=== PATIENT | male | born 1985 | race Caucasian/White ===

== ENCOUNTER 2025-01-08 22:42 | Emergency (ER) | payer OTHER, SELFPAY ==
[2025-01-08 22:44] VITALS: BP 123/88
[2025-01-08 23:34] LABS: Troponin I < 0.012 ng/ml
[2025-01-08 23:47] LABS: ALT (SGPT) 40 U/L (0-50); AST (SGOT) 28 U/L (17-59); Alkaline Phosphatase 74 U/L (38-126); Blood Urea Nitrogen 20 mg/dl (9-20); Calcium 10.3 mg/dl (8.4-10.2); Carbon Dioxide 23 mmol/L (22-30); Chloride 105 mmol/L (98-107); Glucose 100 mg/dl (70-99); Potassium 4.6 mmol/L (3.5-5.1); Sodium 140 mmol/L (135-145); Total Bilirubin 1.1 mg/dl (0.2-1.3); Total Protein 8.5 g/dl (6.3-8.2); eGFR > 60.00
[2025-01-09 03:18] VITALS: BP 122/80
[2025-01-09 03:55] VITALS: BP 125/87
[2025-01-09 04:00] VITALS: BP 118/85
[2025-01-09 04:09] LABS: % Basophils 0.3 % (0-2); % Eosinophils 0.7 % (0-6); % Immature Granulocytes 0.3 % (0-0.5); % Lymphocytes 29.9 % (20.5-51.1); % Monocytes 5.9 % (1.7-9.3); % Neutrophils 62.9 % (42.2-75.2); Absolute Eosinophils 0.1 10^3/uL (0-0.7); Absolute Lymphocytes 3.5 10^3/uL (1.2-3.4); Absolute Monocytes 0.7 10^3/uL (0.1-0.6); Absolute Neutrophils 7.3 10^3/uL (1.4-6.5); Hematocrit 47.3 % (39.0-52.0); Hemoglobin 15.2 g/dL (13.0-18.0); Mean Corp Hgb Conc. 32.1 g/dL (33.0-37.0); Mean Corpuscular Hgb 28.5 pg (27.0-31.0); Mean Corpuscular Volume 88.7 fL (80.0-94.0); Mean Platelet Volume 9.4 fL (7.4-10.4); Nucleated Red Blood Cells % 0 % (-); Platelet Count 344 10^3/uL (130-400); Red Blood Cell Count 5.33 10^6/uL (4.70-6.10); Red Cell Dist. Width 14.2 % (11.5-14.5); White Blood Cell Count 11.6 10^3/uL (4.8-10.8)
--- NOTE | 2025-01-09 04:32 | ED.GENMED ---
History of Present Illness
General
Chief Complaint: Back Pain
Source: patient and spouse
Exam Limitations: none
Time Seen by Provider: 01/09/25 04:09
Nursing documentation reviewed up to this point in time: agreed with
History of Present Illness
History of Present Illness:
39-year-old male with a past medical history of SVT status post ablation who presents to the emergency department for evaluation of right scapular pain. Patient reports symptoms started yesterday and have been constant and intense since then. He
reports a sharp pain right medial scapula that radiates towards the posterior the right shoulder, right neck and right side of the chest. It is worse with any type of movement and with palpation. No relieving factors noted�patient has tried
Tylenol, muscle relaxers, meloxicam without relief. He denies any associated weakness or numbness in the right arm. He denies any associated shortness of breath. No recent cough, fevers, chills. No swelling or pain in the legs. No abdominal
pain, nausea, vomiting. He says that he has had more mild symptoms in this area with working on the past but never this intense; did not have any specific trauma or injury.
Past History
Past History
ED Past Medical History: Other
ED Past Surgical History: Orthopedic
Social History
Tobacco: Non-smoker
Personal:
Living: with family
Review of Systems
Review of Systems
All Other Systems: ROS reviewed and negative except as documented in HPI and ROS
Constitutional: Denies fever or chills
Respiratory: Denies cough or trouble breathing
Cardiac: Reports chest pain; Denies palpitations
ABD/GI: Denies abdominal pain, nausea or vomiting
: Denies flank pain
Musculoskeletal: Reports joint pain (Shoulder pain) and back pain; Denies neck pain
Neurological: Denies dizzy, headache, weakness or numbness
Phy Exam
Physical Exam
Physical Exam:
General: Awake, alert, oriented x3; appears uncomfortable
Head: Normocephalic, atraumatic
Eyes: Conjunctiva normal
Throat: Airway intact, handling secretions
Neck: Trachea midline, supple without meningismus
Lungs: Clear to auscultation bilaterally, no wheezing, rales, rhonchi
Heart: Regular rate and rhythm, no murmurs, gallops, or rubs
Abd: Soft, non distended, nontender
Back: Patient has tenderness upper thoracic left roughly T2-T3 right paraspinal region but no midline tenderness and no midline lumbar tenderness; he has tenderness along the medial margin of the right scapula
Skin: no rash in area of concern
Extremities: No edema in extremities, equal pulses in all extremities�specifically a strong right radial pulse; motor and sensory intact distal right upper extremity; he does have tenderness posterior inferior aspect of the shoulder but no
tenderness along the clavicle or anterior shoulder or along the deltoid
Scores
Heart Failure Risk
Heart Failure Risk Score: Not Applicable
Heart Score for Chest Pain Patients
STEMI patient?: Not applicable
Withdrawal Assessment of Alcohol
Withdrawal Assessment Completed?: Not applicable
Course
Orders/Labs/Results
Orders:
Orders
01/08/25 22:47
Electrocardiogram (*1) Urgent
Reason for Study: Chest Pain
Cardiac Monitoring- Treatment ONCE
EKG- Treatment ONCE
IV Insert/Care/Rem.- Treatment PRN
Complete Blood Count/With Diff Urgent
O2 Therapy [RESP] Urgent
Titrate/Wean O2 to maintain O2 sat greater than (%): 90
Special Instructions: Maintain sats >/=90%
Pulse Ox/spot Check [RESP] Urgent
Quantity: 1
Special Instructions: ON ROOM AIR
01/08/25 22:59
Comprehensive Metabolic Panel Urgent
Troponin I Urgent
01/09/25 04:12
CT Chest PE Study Urgent
Comment:
Reason For Exam: right chest pain, scapular pain
01/09/25 04:32
Ketorolac [Toradol] 15 mg IV NOW STA
Morphine Sulfate 4 mg IV NOW STA
01/09/25 04:38
Troponin I Urgent
01/09/25 04:41
Ondansetron Injectable [Zofran] 4 mg .ROUTE .STK-MED ONE
01/09/25 04:43
Ondansetron Injectable [Zofran] 4 mg IV NOW STA
01/09/25 05:42
HYDROmorphone [Dilaudid] 0.5 mg .ROUTE .STK-MED ONE
HYDROmorphone [Dilaudid] 0.5 mg IV NOW STA
Abnormal Lab Results
01/08/25 01/08/25
22:47 22:59
WBC 11.6 H 10^3/uL
(4.8-10.8)
MCHC 32.1 L g/dL
(33.0-37.0)
Absolute Neuts (auto) 7.3 H 10^3/uL
(1.4-6.5)
Absolute Lymphs (auto) 3.5 H 10^3/uL
(1.2-3.4)
Absolute Monos (auto) 0.7 H 10^3/uL
(0.1-0.6)
Glucose 100 H mg/dl
(70-99)
Calcium 10.3 H mg/dl
(8.4-10.2)
Total Protein 8.5 H g/dl
(6.3-8.2)
01/08/25 22:47
01/08/25 22:59
Vital Signs
Initial and Last Documented VS:
Initial Vital Signs
Temp Pulse Resp BP Pulse Ox
36.9 C 84 19 123/88 99
01/08/25 22:44 01/08/25 22:44 01/08/25 22:44 01/08/25 22:44 01/08/25 22:44
Last Documented Vital Signs
Temp Pulse Resp BP Pulse Ox
37.1 C 71 13 109/70 94
01/09/25 03:18 01/09/25 05:00 01/09/25 05:00 01/09/25 05:00 01/09/25 05:00
MDM/Problems Addressed
Differential Diagnosis Includes:
Pinched nerve/radiculopathy, muscular strain, pneumothorax, costochondritis, PE, ACS considered much less likely, aortic dissection considered very unlikely clinically
MDM/Problems Addressed:
39-year-old male presents for evaluation of right scapular pain radiating towards the right neck, shoulder, chest constant since yesterday. Denies specific trauma or injury but he has had pains in this area with working out in the past. Vitals and
exam as above. He had labs sent in triage including a CBC and a CMP which showed no clinically significant abnormalities. Troponin is pending. EKG shows sinus rhythm no STEMI. Will check CTA of chest to rule out PE. Treat pain. Reassess after
the above.
Reviewed remaining labs�troponin is undetectable. CT of the chest shows no PE, no dissection, no other acute pathology to account for symptoms. My suspicion is that this is likely a pinched nerve. Will plan to discharge with pain control,
follow-up with orthopedist as an outpatient. Patient comfortable with this plan. All questions answered.
*Radiology
Radiology exam reviewed: radiology read reviewed
*Pulse Oximetry
Patient hypoxic: no
*EKG
Interpreted by ED Provider?: Yes
Heart Rate: 77
Rate: normal
Rhythm: sinus
[place]: normal axis
Interval: normal interval
QRS Pattern: normal QRS
Ischemia: no ischemia
*Critical Care Note
Total Time (30-74mins, 75-104mins- exclusive of procedures): Not Applicable
Data Reviewed
Source: patient and spouse
ED Attending Note
-
Portions of this chart may have been created with voice recognition software.� Occasional wrong word or��sound alike� substitutions may have occurred due to the inherent limitations of voice recognition software.
Discharge Plan
Departure
Patient Disposition: Home (Routine Discharge)
Date of Disposition: 01/09/25
Time of Disposition: 06:02
Patient with high blood pressure during this ER visit?: No
Discharge Problem:
Pain of right scapula
Instructions: Radiculopathy (DC)
Prescriptions:
New
gabapentin 100 mg capsule
100 mg PO TID Qty: 30 0RF
oxycodone 5 mg capsule
5 mg PO TID PRN (Reason: Pain) Qty: 14 0RF
methylprednisolone [Medrol (Taoc)] 4 mg tablets,dose pack
See Rx Instructions .ROUTE .COMPLEX Qty: 21 0RF
Rx Instructions:
orally per package directions
No Action
metoprolol succinate 50 MG tablet extended release 24 hr
25 mg PO BID
flecainide 100 MG tablet
50 mg PO Q12H
bupropion HCl 300 MG tablet extended release 24 hr
300 mg PO QPM
doxycycline hyclate 100 MG tablet
100 mg PO BID Qty: 13 0RF
Referrals:
Haroldo Hankins MD [Family Provider] -
Scotty Larios MD [Active] - Call in 1-3 days for appt (Orthopedist)
Activity Restrictions/Additional Instructions:
Thank you for visiting the Emergency Department at [facility].
1. Please schedule a follow up appointment as directed. Call first thing tomorrow morning to make an appointment.
2. If indicated, please take your medications as instructed and indicated on discharge paperwork.
3. If any of your symptoms do not improve, or persist, or become more severe within 6-12 hours, please return to the emergency department for further care.
4. Please return to the emergency department if you develop a headache, neck pain/stiffness, fever greater than 100.4F, chest pain, shortness of breath, persistent nausea, vomiting, slurred speech, difficulty walking, numbness/tingling, weakness,
signs of infection or any other symptoms that are worrisome to you.
Please call [phone] if you have any questions.
Interventions
Interventions:
*Risk Screen - Suicide Last Done: 01/08/25 22:44
*General Assessment Last Done: 01/09/25 04:29
*Neglect/Abuse Screening Last Done: 01/08/25 22:44
ED- Fall Risk Assessment Last Done: 01/09/25 04:30
ED-Musculoskeletal Assessment Last Done: 01/09/25 04:28
Discharge Date and Time
Print Language: EMIRATI
[2025-01-09] MEDS: TORADOL 15 MG IV (04:37)
[2025-01-09] MEDS: MORPHINE SULFATE 4 MG IV (04:37)
[2025-01-09] MEDS: ZOFRAN 4 MG IV (04:44)
[2025-01-09 05:00] VITALS: BP 109/70
[2025-01-09 05:10] LABS: Troponin I < 0.012 ng/ml
[2025-01-09] MEDS: DILAUDID 0.5 MG IV (05:42)
== END 2025-01-09 06:17 | disposition home or self-care (01) ==
LOC: EMR 22:42
PROVIDERS: EMERGENCY PHYSICIAN Emergency Medicine; FAMILY PHYSICIAN Family Medicine
DX: M25.511 Pain in right shoulder (principal)
CPT/HCPCS: 99285; 96374; 96375 ×3; 71275; 80053; 84484; 85025; 93005; Q9967

== ENCOUNTER 2025-01-29 16:52 | Emergency (ER) | payer OTHER, SELFPAY ==
[2025-01-29 17:16] VITALS: BP 140/93
[2025-01-29 20:50] VITALS: BMI 30.1
[2025-01-29 21:26] VITALS: BP 142/84
--- NOTE | 2025-01-29 21:27 | ED.GENMED ---
History of Present Illness
General
Chief Complaint: Back Pain
Source: patient, records and previous radiology exam
Exam Limitations: none
Time Seen by Provider: 01/29/25 21:08
Nursing documentation reviewed up to this point in time: agreed with
History of Present Illness
History of Present Illness:
39-year-old male presents with right posterior back pain around scapula acute on chronic issue seen in the ER ER few weeks ago had a CAT scan some blood work, treated with some pain meds discharged to follow-up with physical therapy scheduled to see
them next week patient states he felt better now pain returned, same pain he has had previously states he goes back years actually he got it after working out, told it could be a pinched nerve, he has no arm or leg weakness no fever no cough pain is
worse with movement, better with rest, currently on no meds for it, no rash
Past History
Past History
ED Past Medical History: Other
ED Past Surgical History: Orthopedic
Social History
Tobacco: Non-smoker
Alcohol: None
Drug: None
Personal:
Living: with family
Employment: Employed
Review of Systems
Review of Systems
All Other Systems: Not applicable
Constitutional: Denies fever
Respiratory: Reports no symptoms; Denies trouble breathing
Cardiac: Reports no symptoms; Denies chest pain
ABD/GI: Reports no symptoms; Denies abdominal pain
Musculoskeletal: Reports back pain
Neurological: Reports no symptoms
Endocrine: Reports no symptoms
Hematologic/Lymphatic: Reports no symptoms
Phy Exam
Physical Exam
Physical Exam:
Physical Exam
General: 39-year-old male looks uncomfortable due to pain but nontoxic
Neck: No jaundice, midline trachea no midline neck pain
Back: +point tender of the right scapula no cr�pe
Heart: s1/s2 regular rate and rhythm, no murmur. equal radial pulses.
Lungs: no acute respiratory distress. clear bilaterally
Abdomen: Nontender
Neuro: alert and oriented. no focal neurological deficits drawn equal motor vehicle parts interpreter strength, strong radial pulses bilaterally
Skin: no rash
Psychiatric: well kept. interactive and cooperative
Extremities: no edema.
Course
Orders/Labs/Results
Orders:
Orders
01/29/25 21:18
Diazepam [Valium] 5 mg PO NOW STA
Ketorolac [Toradol] 60 mg IM NOW STA
Oxycodone/Acetaminophen [Percocet 5/325] 1 tablet PO NOW STA
Vital Signs
Initial and Last Documented VS:
Initial Vital Signs
Temp Pulse Resp BP Pulse Ox
98.5 F 95 20 140/93 99
01/29/25 17:16 01/29/25 17:16 01/29/25 17:16 01/29/25 17:16 01/29/25 17:16
Last Documented Vital Signs
Temp Pulse Resp BP Pulse Ox
98.5 F 76 18 142/84 99
01/29/25 17:16 01/29/25 21:26 01/29/25 21:26 01/29/25 21:26 01/29/25 21:26
MDM/Problems Addressed
Differential Diagnosis Includes:
Radiculopathy, muscle strain, conceivably mass, negative workup recently including CT of the chest
MDM/Problems Addressed:
Back pain
*Radiology
Radiology exam reviewed: radiology read reviewed
*Pulse Oximetry
Patient hypoxic: no
*Critical Care Note
Total Time (30-74mins, 75-104mins- exclusive of procedures): Not Applicable
Update Note
Update Note:
Update prior to notes reviewed, from his prior visit CT report reviewed, will try to get him comfortable here physical therapy is already been arranged by the patient, I believe he would benefit from a pain management/metal spray operator as well try to get
him some numbers for follow-up
10:30 PM update patient looks improved, he request refill for his prior meds, encouraged him to follow-up with physical therapist also with the metal spray operator number given to the patient on his discharge papers
ED Attending Note
-
Portions of this chart may have been created with voice recognition software.� Occasional wrong word or��sound alike� substitutions may have occurred due to the inherent limitations of voice recognition software.
Discharge Plan
Departure
Patient Disposition: Home (Routine Discharge)
Date of Disposition: 01/29/25
Time of Disposition: 22:24
Patient with high blood pressure during this ER visit?: No
Condition: Good
Covid-19: Not Applicable
Discharge Problem:
Back pain
Instructions: Upper Back Pain (DC), Radiculopathy (DC)
Prescriptions:
New
gabapentin 100 mg capsule
100 mg PO TID Qty: 30 0RF
methylprednisolone [Medrol ([place])] 4 mg tablets,dose pack
See Rx Instructions .ROUTE .COMPLEX Qty: 21 0RF
Rx Instructions:
for 6 days
oxycodone 5 mg tablet
5 mg PO Q8H PRN (Reason: Pain) Qty: 10 0RF
No Action
metoprolol succinate 50 MG tablet extended release 24 hr
25 mg PO BID
flecainide 100 MG tablet
50 mg PO Q12H
bupropion HCl 300 MG tablet extended release 24 hr
300 mg PO QPM
doxycycline hyclate 100 MG tablet
100 mg PO BID Qty: 13 0RF
gabapentin 100 mg capsule
100 mg PO TID Qty: 30 0RF
oxycodone 5 mg capsule
5 mg PO TID PRN (Reason: Pain) Qty: 14 0RF
methylprednisolone [Medrol ([place]aco)] 4 mg tablets,dose pack
See Rx Instructions .ROUTE .COMPLEX Qty: 21 0RF
Rx Instructions:
orally per package directions
Referrals:
Constantino Olmstead MD [Active] - Next open appointment
Haroldo Hankins MD [Family Provider] -
Interventions
Interventions:
*Risk Screen - Suicide Last Done: 01/29/25 17:16
*General Assessment Last Done: 01/29/25 20:50
*Neglect/Abuse Screening Last Done: 01/29/25 20:50
*ED- Fall Risk Assessment Last Done: 01/29/25 20:50
*ED COVID-19 Vaccine History Last Done: 01/29/25 20:50
ED-Musculoskeletal Assessment Last Done: 01/29/25 20:50
Discharge Date and Time
Print Language: PERSIAN
[2025-01-29] MEDS: PERCOCET 5/325 1 TABLET PO (21:29)
[2025-01-29] MEDS: TORADOL 60 MG IM (21:29)
[2025-01-29] MEDS: VALIUM 5 MG PO (21:30)
== END 2025-01-29 22:42 | disposition home or self-care (01) ==
LOC: EMR 16:52
PROVIDERS: EMERGENCY PHYSICIAN Emergency Medicine; FAMILY PHYSICIAN Family Medicine
DX: M54.9 Dorsalgia, unspecified (principal)
CPT/HCPCS: 99282; 96372